=== PATIENT | female | born 1960 | race Caucasian/White ===

== ENCOUNTER 2018-09-27 07:55 | Emergency (ER) | payer MEDICAID ==
[~2018-09-27] VITALS: Ht 167.6 cm; Wt 86.4 kg
[2018-09-27] MEDS ORDERED: KETOROLAC TROMETHAMINE 30 MG/ML VIAL IM ONE (08:30)
[2018-09-27] MEDS ORDERED: AMOXICILLIN TRIHYDRATE 250 MG CAPSULE PO ONE (08:30)
[2018-09-27 08:53] VITALS: BP 149/88
== END 2018-09-27 08:59 | disposition home or self-care (01) ==
LOC: EMS 07:56
DX: K04.7 Periapical abscess without sinus (principal); Z88.5 Allergy status to narcotic agent
CPT/HCPCS: 96372; 99283; J1885

== ENCOUNTER 2018-11-02 07:16 | Emergency (ER) | payer MEDICAID ==
[~2018-11-02] VITALS: Ht 167.6 cm; Wt 86.4 kg
[2018-11-02] MEDS ORDERED: TRAM50TA4 PO (07:26)
[2018-11-02 08:44] VITALS: BP 132/86
== END 2018-11-02 09:33 | disposition home or self-care (01) ==
LOC: EMS 07:18
DX: R60.0 Localized edema (principal); L03.116 Cellulitis of left lower limb; L03.115 Cellulitis of right lower limb; Z88.5 Allergy status to narcotic agent
CPT/HCPCS: 93970